=== PATIENT | male | born 1980 | race Caucasian/White ===

== ENCOUNTER 2020-01-10 19:02 | Emergency (ER) | payer OTHER ==
[2020-01-10 22:38] LABS: Hep C IgG Ab Non-Reactive (NonReactive)
[2020-01-10 22:44] LABS: HIV (1/2) Antibody/Antigen Non-Reactive (NonReactive); HIV 1/2 INDEX 0.52 S/CO (<1.00)
[2020-01-10 22:46] LABS: HBSAB Concentration 29.53 mIU/mL; Hep B Surf AB Reactive (NonReactive)
== END 2020-01-10 19:27 | disposition home or self-care (01) ==
LOC: ERS 19:02
DX: S61.231A Puncture wound without foreign body of left index finger without damage to nail, initial encounter (principal); W26.8XXA Contact with other sharp object(s), not elsewhere classified, initial encounter
CPT/HCPCS: 36415; 86706; 86803; 87389; 99283